=== PATIENT | male | born 1990 | race Caucasian/White ===

== ENCOUNTER 2024-03-19 06:26 | Day surgery (SDC) | payer OTHER, SELFPAY | END 2024-03-19 14:24 | disposition home or self-care (01) | LOC: GI 06:26 | PROVIDERS: ATTENDING PHYSICIAN Internal Medicine | DX: K62.4 Stenosis of anus and rectum (principal); Z93.2 Ileostomy status; K63.2 Fistula of intestine; K91.850 Pouchitis; K52.3 Indeterminate colitis; Z90.49 Acquired absence of other specified parts of digestive tract | CPT/HCPCS: 44386; 88305 ==